=== PATIENT | male | born 1975 | race Caucasian/White ===

== ENCOUNTER 2016-11-02 09:05 | Emergency (ER) | payer OTHER ==
[2016-11-02] MEDS ORDERED: FENTANYL 100 MCG/2 ML VIAL ONE (09:26)
--- NOTE | 2016-11-02 10:39 | ER NURSING DOCUMENTATION ---
Nurse's Notes [facility] Name:Sage Pinzon Age:41 yrs Sex:Male :1975 Arrival Date:11/02/2016 Time:09:05 BedPortable Radiology Private MD: Diagnosis:Foot Contusion Presentation: 11/02 09:09 Acuity: FERNANDO 3 st 09:09 Presenting complaint: Patient states: was on a 16 foot ladder that slid down the wall. sc1 Pt got his left foot tangled in the ladder injuring his foot. Denies any other injuries. Transition of care: patient was not received from another setting of care. Notified ED Physician of patient's arrival and CC Dr. Medina notified. Care prior to arrival: IV initiated. Medication(s) given: Fentanyl 100MCG. 09:09 Method Of Arrival: EMS: 410 sc1 Triage Assessment: 09:13 General: Appears uncomfortable, well developed, well nourished, well groomed, Behavior sc1 is cooperative, pleasant. Pain: Complains of pain in left foot. Historical: - Allergies: No known drug Allergies; - Home Meds: 1. levothyroxine oral 2. Cytomel Oral - PMHx: HYPOTHYROIDISM; - PSHx: THYROIDECTOMY; - Tetanus: < 10 years. - Ebola Screening: : Patient negative for fever greater than or equal to 101.5 degrees Fahrenheit, and additional compatible Ebola Virus Disease symptoms. Patient denies exposure to infectious person. Patient denies travel to an Ebola-affected area in the 21 days before illness onset. No symptoms or risks identified at this time. . - Immunization history: Flu Vaccine < 1 year. - Social history: Smoking status: Patient states former smoker of tobacco. Patient/guardian denies using alcohol, street drugs, IV drugs, marijuana. Screenin:15 Infectious Disease Risk None. Abuse screen: Denies threats or abuse. Nutritional sc1 screening: No deficits noted. Vital Signs: 09:13 BP 127 / 47; Pulse 76; Resp 16; Temp 98.4; Pulse Ox 94% on R/A; mo1 ED Course: 09:06 Patient arrived in ED. ama 09:[address] 09:09 Kimberley Toney RN is Primary Nurse. mo1 09:09 Elvin Medina MD is Attending Physician. mo 09:15 Notified ED Physician of patient's arrival and chief complaint. Dr. Medina notified. Arm mo1 band placed on Bed in low position Call Light in Reach HOB Elevated. X-ray done. X-ray ordered. Affected limb iced. 10:19 Crutch training done. 3D boot applied to left foot. mo1 Administered Medications: No medications were administered Outcome: 10:07 Discharge ordered by . mo 10:38 Discharged to home ambulatory, with crutches. [facility] [place] 10:38 Condition: stable 10:38 Discharge instructions given to patient, Instructed on crutch walking, discharge instructions, follow up and referral plans. [facility] 10:39 Patient left the ED. [facility] [place] 11/03 09:32 Discharge F/U Call: Spoke with: patient. other: Name: after leaving here pt went to [facility] ED in [place] where they did a CT of his foot and found two fractures. Pt has no questions or concerns at this time. Signatures: Marianne Valdez RN RN Kimberley Toney RN RN [facility] [place] Elvin Medina MD MD mo [place]on Zarate, Reg Reg ama
--- NOTE | 2016-11-02 10:39 | ER PHYSICIAN DOCUMENTATION ---
Physician Documentation [facility] Name:Sage Pinzon Age:41 yrs Sex:Male :1975 Arrival Date:11/02/2016 Time:09:05 BedPortable Radiology Private MD: Elvin Ruiz Disposition: 11/02/16 10:07 Discharged to Home/Self Care. Impression: Foot Contusion. - Condition is Good. - Discharge Instructions: CONTUSION, Foot. - Medical Reconciliation form form. - Follow up: Private Physician; When: 1 week; Reason: Recheck today's complaints. - Problem is new. - Symptoms have improved. HPI: 11/02 09:31 This 41 yrs old Male presents to ER via EMS with complaints of Foot Injury - sc L. 09:31 The patient presents with an injury. The complaints affect the left foot. Context: The sc problem was sustained at work, resulted from the patient falling, Mechanism of Injury: Unknown the patient is not able to bear weight, the patient is not able to ambulate, ladder slid out, patient landed on feet. Onset: The symptom(s)/episode began/occurred just prior to arrival. Associated signs and symptoms: The patient has no apparent associated signs or symptoms. Historical: - Allergies: No known drug Allergies; - Home Meds: 1. levothyroxine oral 2. Cytomel Oral - PMHx: HYPOTHYROIDISM; - PSHx: THYROIDECTOMY; - Tetanus: < 10 years. - Ebola Screening: : Patient negative for fever greater than or equal to 101.5 degrees Fahrenheit, and additional compatible Ebola Virus Disease symptoms. Patient denies exposure to infectious person. Patient denies travel to an Ebola-affected area in the 21 days before illness onset. No symptoms or risks identified at this time. . - Immunization history: Flu Vaccine < 1 year. - Social history: Smoking status: Patient states former smoker of tobacco. Patient/guardian denies using alcohol, street drugs, IV drugs, marijuana. ROS: 09:32 MS/extremity: Positive for injury or acute deformity. sc 09:32 Constitutional: Negative for fever, chills, and weight loss. sc Eyes: Negative for injury, pain, redness, and discharge. Neck: Negative for injury, pain, and swelling. Cardiovascular: Negative for chest pain, palpitations, and edema. Respiratory: Negative for shortness of breath, cough, wheezing, and pleuritic chest pain. Back: Negative for injury and pain. Skin: Negative for injury, rash, and discoloration. 09:32 Neuro: Negative for headache, weakness, numbness, tingling, and seizure. 09:32 MS/extremity: Positive for injury or acute deformity, pain. Exam: Constitutional: This is a well developed, well nourished patient who is awake, alert, and in no acute distress. Head/Face: Normocephalic, atraumatic. Eyes: Pupils equal round and reactive to light, extra-ocular motions intact. Lids and lashes normal. Conjunctiva and sclera are non-icteric and not injected. Cornea within normal limits. Periorbital areas with no swelling, redness, or edema. ENT: Nares patent. No nasal discharge, no septal abnormalities noted. Tympanic membranes are normal and external auditory canals are clear. Oropharynx with no redness, swelling, or masses, exudates, or evidence of obstruction, uvula midline. Mucous membranes moist. Neck: Trachea midline, no thyromegaly or masses palpated, and no cervical lymphadenopathy. Supple, full range of motion without nuchal rigidity, or vertebral point tenderness. No meningismus. Chest/axilla: Normal chest wall appearance and motion. Nontender with no deformity. No lesions are appreciated. Cardiovascular: Regular rate and rhythm with a normal S1 and S2. No gallops, murmurs, or rubs. Normal PMI, no JVD. No pulse deficits. Respiratory: Lungs have equal breath sounds bilaterally, clear to auscultation and percussion. No rales, rhonchi or wheezes noted. No increased work of breathing, no retractions or nasal flaring. Abdomen/GI: Soft, non-tender, with normal bowel sounds. No distension or tympany. No guarding or rebound. No evidence of tenderness throughout. Back: No spinal tenderness. No costovertebral tenderness. Full range of motion. 09:32 Skin: Warm, dry with normal turgor. Normal color with no rashes, no lesions, and no sc evidence of cellulitis. 09:32 Musculoskeletal/extremity: Extremities: grossly normal except: contusion, decreased ROM, pain, ROM: limited active range of motion due to pain, limited passive range of motion due to pain, Circulation is intact in all extremities. Sensation intact. Calcaneus exam tender. Vital Signs: 09:13 BP 127 / 47; Pulse 76; Resp 16; Temp 98.4; Pulse Ox 94% on R/A; sc1 MDM: 09:09 Patient medically screened. oh : Data reviewed: and as a result, I will discharge patient. oh 11/02 12:31 Order name: FOOT;3 [place] [address]8; Complete Time: 17:20 EDMS 11/02 17:20 Interpretation: Normal. oh 11/02 09:33 Order name: Elevate and Ice Pack; Complete Time: 10:19 oh 11/02 09:33 Order name: ORTHO: Crutches & Training; Complete Time: 10:19 oh 11/02 09:33 Order name: Walking Boot; Complete Time: 10:19 oh Dispensed Medications: No medications were administered Signatures: Kimberley Toney RN RN oh1 Elvin Medina MD MD oh
--- NOTE | 2016-11-02 11:31 | RADIOLOGY REPORT ---
Three views of the left foot demonstrate no displaced fracture or dislocation. Plantar calcaneal spur is seen. The visualized joints appear unremarkable. IMPRESSION: No displaced injury is identified. If clinically indicated, further evaluation with CT scanning may be of benefit. The findings were personally reviewed with Dr. Medina upon completion of the examination. BRIAN
== END 2016-11-02 10:39 | disposition home or self-care (01) ==
LOC: ER 09:05
DX: S90.32XA Contusion of left foot, initial encounter (principal); W11.XXXA Fall on and from ladder, initial encounter; Y92.61 Building [any] under construction as the place of occurrence of the external cause; Y93.H3 Activity, building and construction; Y99.0 Civilian activity done for income or pay
CPT/HCPCS: 99283; A0425; A0427; J3010